=== PATIENT | male | born 1995 | race Caucasian/White ===

== ENCOUNTER → 2021-11-10 16:56 | Outpatient (CLI) | payer OTHER, MEDICAID, SELFPAY ==
[2021-11-10 17:55] LABS: Hematocrit 48.3 % (41-53); Hemoglobin 16.5 g/dL (13.5-17.5); Mean Corpuscular HGB Conc 34.1 % (30-36); Mean Corpuscular Hemoglobin 30.2 PG (26-34); Mean Corpuscular Volume 88.4 fL (80-100); Platelet Count 319 X10^3/uL (150-400); Red Blood Cell Count 5.46 X10^6/uL (4.5-5.9); Red Cell Distribution Width 14.4 % (11.6-14.8); White Blood Cell Count 9.2 X10^3/uL (4.5-11.0)
[2021-11-11 03:28] LABS: TSH w/ Reflex to FT4 1.06 uIU/mL (0.47-4.68)
== END ==
PROVIDERS: Family Provider Family Medicine; PCP Registered Nurse Diabetes Educator; Referring Provider Registered Nurse Diabetes Educator; Visit Provider Registered Nurse Diabetes Educator
DX: F32.A Depression, unspecified (principal); F41.9 Anxiety disorder, unspecified
CPT/HCPCS: 36415; 84443; 85027

== ENCOUNTER → 2021-12-31 10:35 | Outpatient (CLI) | payer OTHER, MEDICAID, SELFPAY ==
--- NOTE | 2021-12-31 10:37 | DI.RAD.S_ITS ---
PROCEDURE: XR ANKLE RT MIN 3V INDICATIONS: Ankle injury TECHNIQUE: 3 views of the ankle were acquired. COMPARISON: [facility], , FOOT 3V RIGHT, 04/19/2009, 15:27. [facility], , XR FOOT RT MIN 3V, 12/31/2021, 10:43. FINDINGS: Bones: No fractures or dislocations. Ankle mortise is normally aligned. No suspicious bony lesions. The talar dome demonstrates no geri abnormality. Soft tissues: No significant soft tissue swelling is seen. IMPRESSION: No significant ankle plain film abnormality is seen. If it would be helpful for clinical management decision making, please consider a dedicated, scheduled ankle MRI for further evaluation (assuming that there is no contraindication). Dictated by: Hernesto Bell M.D. on 12/31/2021 at 10:05 Approved by: Hernesto Bell M.D. on 12/31/2021 at 10:05
--- NOTE | 2021-12-31 10:37 | DI.RAD.S_ITS ---
PROCEDURE: XR FOOT RT MIN 3V INDICATIONS: Ankle injury TECHNIQUE: 3 views of the foot were acquired. COMPARISON: [facility], CR, XR ANKLE RT MIN 3V, 12/31/2021, 10:43. [facility], CR, FOOT 3V RIGHT, 04/19/2009, 15:27. FINDINGS: Bones: No fractures or dislocations. No suspicious bony lesions. Incidental note is made of a bipartite medial sesamoid bone. Soft tissues: No tibiotalar joint effusion. Achilles tendon appears normal. IMPRESSION: Unremarkable foot plain films, similar to prior. Dictated by: Hernesto Bell M.D. on 12/31/2021 at 10:04 Approved by: Hernesto Bell M.D. on 12/31/2021 at 10:05
== END ==
PROVIDERS: Family Provider Family Medicine; PCP Registered Nurse Diabetes Educator; Referring Provider Nurse Practitioner Family; Visit Provider Nurse Practitioner Family
DX: M25.571 Pain in right ankle and joints of right foot (principal); M79.671 Pain in right foot
CPT/HCPCS: 73610; 73630